=== PATIENT | male | born 1985 | race Caucasian/White ===

== ENCOUNTER 2017-05-07 01:34 | Inpatient (IN) | payer OTHER ==
[~2017-05-07] VITALS: Ht 182.9 cm; Wt 96.5 kg
[2017-05-07 01:35] VITALS: O2SAT 100
[2017-05-07] MEDS ORDERED: DIPHTH/TETANUS/ACEL PERTUSSIS (BOOSTER) 0.5 ML VIAL/PFS IM ONE (01:40)
[2017-05-07 01:54] LABS: I-STAT POTASSIUM 4.2 MMOL/L (3.5-4.9)
[2017-05-07 01:56] LABS: AUTOMATED NEUTROPHIL # 4.1 TH/MM3 (1.8-7.7); BASOPHIL % 0.3 % (0.0-2.0); EOSINOPHIL # 0.2 TH/MM3 (0-0.4); EOSINOPHIL % 1.9 % (0.0-4.0); HEMATOCRIT 41.3 % (39.0-51.0); HEMO FLAGS DIFF FINAL; LYMPH % 40.7 % (9.0-44.0); LYMPHOCYTE # 3.6 TH/MM3 (1.0-4.8); MEAN CELL VOLUME 91.4 FL (80.0-100.0); MEAN CORPUSCULAR HEMOGLOBIN 32.3 PG (27.0-34.0); MEAN CORPUSCULAR HGB CONC 35.4 % (32.0-36.0); MONO % 9.8 % (0.0-8.0); NEUT % 47.3 % (16.0-70.0); PLATELET COUNT 237 TH/MM3 (150-450); RED BLOOD COUNT 4.52 MIL/MM3 (4.50-5.90); RED CELL DISTRIBUTION WIDTH 12.1 % (11.6-17.2); WHITE BLOOD COUNT 8.7 TH/MM3 (4.0-11.0)
--- NOTE | 2017-05-07 02:04 | RADRPT ---
EXAM DATE/TIME: 05/07/2017 01:43 [facility] COMPARISON: No previous studies available for comparison. INDICATIONS : Trauma alert, fall from bed, seizure RADIATION DOSE: 56.35 CTDIvol (mGy) MEDICAL HISTORY : None SURGICAL HISTORY : None. ENCOUNTER: Initial ACUITY: 1 day PAIN SCALE: 3/10 LOCATION: cranial TECHNIQUE: Multiple contiguous axial images were obtained of the head. Using automated exposure control and adj ustment of the mA and/or kV according to patient size, radiation dose was kept as low as reasonably a chievable to obtain optimal diagnostic quality images. DICOM format image data is available electro nically for review and comparison. FINDINGS: CEREBRUM: The ventricles are normal for age. No evidence of midline shift, mass lesion, hemorrhage or acute in farction. No extra-axial fluid collections are seen. POSTERIOR FOSSA: The cerebellum and brainstem are intact. The 4th ventricle is midline. The cerebellopontine angle i s unremarkable. EXTRACRANIAL: The visualized portion of the orbits is intact. There is soft tissue swelling over left parietal bone . SKULL: The calvaria is intact. No evidence of skull fracture. CONCLUSION: Soft tissue swelling of the left parietal bone no acute fracture or hemorrhage. Awais Gil MD on May 07, 2017 at 1:49 Board Certified Radiologist. This report was verified electronically.
[2017-05-07 02:05] LABS: APTT (PATIENT) 24.5 SEC (24.3-30.1); INTERNATIONAL NORMALIZED RATIO 1.1 RATIO; PROTHROMBIN TIME - PATIENT 11.6 SEC (9.8-11.6)
--- NOTE | 2017-05-07 02:06 | RADRPT ---
EXAM DATE/TIME: 05/07/2017 01:43 [facility] COMPARISON: No previous studies available for comparison. INDICATIONS : Trauma Alert, fall out of a bunk bed. MEDICAL HISTORY : None. SURGICAL HISTORY : None. ENCOUNTER: Initial ACUITY: 1 day PAIN SCORE: 0/10 LOCATION: Bilateral chest FINDINGS: A single view of the chest demonstrates the lungs to be symmetrically aerated without evidence of mas s, infiltrate or effusion. The cardiomediastinal contours are unremarkable. Osseous structures are intact with mild scoliosis. There is overlying artifact from a backboard. CONCLUSION: Negative trauma study. Awais Gil MD on May 07, 2017 at 1:50 Board Certified Radiologist. This report was verified electronically.
--- NOTE | 2017-05-07 02:07 | RADRPT ---
EXAM DATE/TIME: 05/07/2017 01:43 [facility] COMPARISON: No previous studies available for comparison. INDICATIONS : Trauma alert, fell from bed RADIATION DOSE: 46.49 CTDIvol (mGy) MEDICAL HISTORY : None SURGICAL HISTORY : None. ENCOUNTER: Initial ACUITY: 1 day PAIN SCALE: 3/10 LOCATION: neck TECHNIQUE: Volumetric scanning of the cervical spine was performed. Multiplanar reconstructions in the sagittal, coronal and oblique axial planes were performed. Using automated exposure control and adjustment o f the mA and/or kV according to patient size, radiation dose was kept as low as reasonably achievable to obtain optimal diagnostic quality images. DICOM format image data is available electronically f or review and comparison. FINDINGS: The sagittal reconstructions demonstrate normal alignment and normal prevertebral soft tissues. The d ens is intact and there is a normal atlantoaxial relationship. The axial images demonstrate that the vertebral bodies and posterior elements are intact. The soft ti ssues are within normal limits. There is no evidence of acute fracture or malalignment. CONCLUSION: Negative trauma CT. Awais Gil MD on May 07, 2017 at 1:51 Board Certified Radiologist. This report was verified electronically.
--- NOTE | 2017-05-07 02:34 | PD ---
HPI Chief Complaint: Trauma (Alert) Time Seen by Provider: 01:40 Travel History International Travel<30 days: No Contact w/Intl Traveler<30days: No Traveled to known affect area: No History of Present Illness HPI Patient was brought in as a trauma alert. I was in the trauma bay prior to patient's arrival. He is a half-way inmate and rolled off the bed that was about 6 feet high and landed on the floor. His half-way inmate heard him shaking on the floor. He thinks patient had a seizure. He was afterwards complaining off his left leg weakness. He had a scalp laceration on the back of his head. Patient was awake but confused. He was brought in boarded and collared. He continued to have the confusion and weakness of his left lower extremity. He says it feels numb. Patient does not recall his last tetanus shot. GCS was 14. Hemodynamically stable. [facility] Past Medical History Narrative Medical List of his past medical, surgical, social and family history is reviewed from the nursing note. Allergies-Medications (Allergen,Severity, Reaction): Coded Allergies: No Known Allergies (Unverified , 05/07/17) Comments No known drug allergies. Narrative Medication Unknown Review of Systems Except as stated in HPI: all other systems reviewed are Neg Neurologic: Positive: Weakness Physical Exam Narrative GENERAL: Awake, confused, boarded and collared, moderate distress SKIN: Focused skin assessment warm/dry. Left elbow skin tear with minimal bleeding HEAD: Scalp laceration on the occipital area that is 2 cm, oozing blood EYES: Pupils equal and round. No scleral icterus. No injection or drainage. ENT: No nasal bleeding or discharge. Mucous membranes pink and moist. NECK: Trachea midline. No JVD. CARDIOVASCULAR: Regular rate and rhythm. No murmur appreciated. RESPIRATORY: No accessory muscle use. Clear to auscultation. Breath sounds equal bilaterally. GASTROINTESTINAL: Abdomen soft, non-tender, nondistended. Hepatic and splenic margins not palpable. MUSCULOSKELETAL: No obvious deformities. No clubbing. No cyanosis. No edema. NEUROLOGICAL: Awake and alert. No obvious cranial nerve deficits. Second motor strength of 4 out of 5 right lower extremity and 2 out of 5 in the left lower external. Normal speech. PSYCHIATRIC: Appropriate mood and affect; insight and judgment normal. Data Data Last Documented VS Vital Signs Date Time Temp Pulse Resp B/P (MAP) Pulse Ox O2 Delivery O2 Flow Rate FiO2 05/07/17 01:35 100 2.00 05/07/17 01:35 Nasal Cannula Orders Orders Kozv-Gva-Jqiico (Booster) Inj (Boostrix (05/07/17 01:40) I-Stat Profile (05/07/17 01:42) I-Stat Creatinine (05/07/17 01:42) Complete Blood Count With Diff (05/07/17 01:42) Prothrombin Time / Inr (Pt) (05/07/17 01:42) Act Partial Throm Time (Ptt) (05/07/17 01:42) Type And Screen (05/07/17 01:42) Chest, Single Ap (05/07/17 01:42) Ct Brain W/O Iv Contrast(Rout) (05/07/17 01:42) Ct Cerv Spine W/O Contrast (05/07/17 01:42) Iv Access Insert/Monitor (05/07/17 01:42) Ecg Monitoring (05/07/17 01:42) Oximetry (05/07/17 01:42) Oxygen Administration (05/07/17 01:42) Hip, Uni(Ap&Lat) W Ap Pelvis (05/07/17 ) Lidocaine 1% Inj (50 Ml) (Xylocaine 1% I (05/07/17 02:45) Elbow, Limited (Ap&Lat) (05/07/17 ) Admit Order (Ed Use Only) (05/07/17 03:06) Labs Laboratory Tests Test 05/07/17 01:39 White Blood Count 8.7 TH/MM3 Red Blood Count 4.52 MIL/MM3 Hemoglobin 14.6 GM/DL Bedside Hemoglobin 13.9 G/DL Hematocrit 41.3 % Bedside Hematocrit 41.0 % Mean Corpuscular Volume 91.4 FL Mean Corpuscular Hemoglobin 32.3 PG Mean Corpuscular Hemoglobin Concent 35.4 % Red Cell Distribution Width 12.1 % Platelet Count 237 TH/MM3 Mean Platelet Volume 8.1 FL Neutrophils (%) (Auto) 47.3 % Lymphocytes (%) (Auto) 40.7 % Monocytes (%) (Auto) 9.8 % Eosinophils (%) (Auto) 1.9 % Basophils (%) (Auto) 0.3 % Neutrophils # (Auto) 4.1 TH/MM3 Lymphocytes # (Auto) 3.6 TH/MM3 Monocytes # (Auto) 0.9 TH/MM3 Eosinophils # (Auto) 0.2 TH/MM3 Basophils # (Auto) 0.0 TH/MM3 CBC Comment DIFF FINAL Differential Comment Prothrombin Time 11.6 SEC Prothromb Time International Ratio 1.1 RATIO Activated Partial Thromboplast Time 24.5 SEC Bedside Sodium 141 MMOL/L Bedside Potassium 4.2 MMOL/L Bedside Chloride 102 MMOL/L Bedside Blood Urea Nitrogen 14 MG/DL Bedside Creatinine 1.4 MG/DL Bedside Glucose 98 MG/DL MDM Medical Screen Exam Complete: Yes Emergency Medical Condition: Yes Medical Record Reviewed: Yes EKG Prior to Arrival: Yes Differential Diagnosis Intracranial bleed, cervical fracture, seizure disorder Narrative Course 2:30 AM patient was rolled off the backboard. The spine was palpated and there was no step-offs or tenderness. Patient remained hemodynamically stable the entire time. Portable chest is negative. CT scan of the head and C-spine was negative. Patient has been complaining of right hip pain and an x-ray of the hip has been ordered. Meanwhile I went back and reassessed the patient and he continues to complain of weakness and numbness of his left lower extremity and strength remains 2 out of 5. I discussed the case with the trauma surgeon Dr. Olivas and he will come in to see the patient. 2:[address] Morris will admit the patient. Star Yeung the PA is going to repair the lacerations. Please refer to his procedure note. CT of the hip looked negative for any acute fracture. Awaiting for the official report. Critical Care Narrative Aggregate critical care time was 30 minutes. Time to perform other separately billable procedures was not included in the critical care time. My time did not include minutes spent treating any other patients simultaneously or on activities that did not directly contribute to the patient's treatment. The services I provided to this patient were to treat and/or prevent clinically significant deterioration that could result in: Trauma alert, head injury, monoplegia I provided critical care services requiring my management, as noted below: Chart data review, documentation time, medication orders and management, vital sign assessments/reviewing monitor data, ordering and reviewing lab tests, ordering and interpreting/reviewing x-rays and diagnostic studies, care of the patient and discussion of the patient with the admitting physicians. Trauma Alert - Level Two Trauma Alert Level Two: Full trauma team activate, Patient evaluated, Trauma surgeon called Time Surgeon Called: 02:[address] Velasco Diagnosis Diagnosis: Primary Impression: Head injury Qualified Codes: S09.90XA - Unspecified injury of head, initial encounter Additional Impressions: Scalp laceration Qualified Codes: S01.01XA - Laceration without foreign body of scalp, initial encounter Concussion Qualified Codes: S06.0X1A - Concussion with loss of consciousness of 30 minutes or less, initial encounter Seizure Monoplegia Qualified Codes: G83.14 - Monoplegia of lower limb affecting left nondominant side Injury of left elbow Qualified Codes: S59.902A - Unspecified injury of left elbow, initial encounter Contusion of right hip Qualified Codes: S70.01XA - Contusion of right hip, initial encounter Admitting Physician Requests: Molina Goel MD May 07, 2017 02:34
[2017-05-07] MEDS ORDERED: LIDOCAINE HCL 1% 50 ML VIAL INFIL ONE (02:45)
--- NOTE | 2017-05-07 02:56 | PD ---
Physical Exam Time Seen by Provider: 02:35 Data Data Last Documented VS Vital Signs Date Time Temp Pulse Resp B/P (MAP) Pulse Ox O2 Delivery O2 Flow Rate FiO2 05/07/17 01:35 100 2.00 05/07/17 01:35 Nasal Cannula Orders Orders Llom-Wdk-Ytbopk (Booster) Inj (Boostrix (05/07/17 01:40) I-Stat Profile (05/07/17 01:42) I-Stat Creatinine (05/07/17 01:42) Complete Blood Count With Diff (05/07/17 01:42) Prothrombin Time / Inr (Pt) (05/07/17 01:42) Act Partial Throm Time (Ptt) (05/07/17 01:42) Type And Screen (05/07/17 01:42) Chest, Single Ap (05/07/17 01:42) Ct Brain W/O Iv Contrast(Rout) (05/07/17 01:42) Ct Cerv Spine W/O Contrast (05/07/17 01:42) Iv Access Insert/Monitor (05/07/17 01:42) Ecg Monitoring (05/07/17 01:42) Oximetry (05/07/17 01:42) Oxygen Administration (05/07/17 01:42) Hip, Uni(Ap&Lat) W Ap Pelvis (05/07/17 ) Lidocaine 1% Inj (50 Ml) (Xylocaine 1% I (05/07/17 02:45) Elbow, Limited (Ap&Lat) (05/07/17 ) Admit Order (Ed Use Only) (05/07/17 03:06) Labs Laboratory Tests Test 05/07/17 01:39 White Blood Count 8.7 TH/MM3 Red Blood Count 4.52 MIL/MM3 Hemoglobin 14.6 GM/DL Bedside Hemoglobin 13.9 G/DL Hematocrit 41.3 % Bedside Hematocrit 41.0 % Mean Corpuscular Volume 91.4 FL Mean Corpuscular Hemoglobin 32.3 PG Mean Corpuscular Hemoglobin Concent 35.4 % Red Cell Distribution Width 12.1 % Platelet Count 237 TH/MM3 Mean Platelet Volume 8.1 FL Neutrophils (%) (Auto) 47.3 % Lymphocytes (%) (Auto) 40.7 % Monocytes (%) (Auto) 9.8 % Eosinophils (%) (Auto) 1.9 % Basophils (%) (Auto) 0.3 % Neutrophils # (Auto) 4.1 TH/MM3 Lymphocytes # (Auto) 3.6 TH/MM3 Monocytes # (Auto) 0.9 TH/MM3 Eosinophils # (Auto) 0.2 TH/MM3 Basophils # (Auto) 0.0 TH/MM3 CBC Comment DIFF FINAL Differential Comment Prothrombin Time 11.6 SEC Prothromb Time International Ratio 1.1 RATIO Activated Partial Thromboplast Time 24.5 SEC Bedside Sodium 141 MMOL/L Bedside Potassium 4.2 MMOL/L Bedside Chloride 102 MMOL/L Bedside Blood Urea Nitrogen 14 MG/DL Bedside Creatinine 1.4 MG/DL Bedside Glucose 98 MG/DL [facility] Medical Record Reviewed: Yes Supervised Visit with BRY: No Narrative Course This patient presents as a trauma alert. He has a left parietal scalp laceration which I was asked to repair. He verbally consents. He also has a laceration to the left elbow which was repaired, he verbally consented. Procedures Procedure Narrative LACERATION LOCATION: Left parietal scalp LENGTH: 2 cm NUMBER OF STITCHES/JUAN JOSÉ: 4 REPAIR: The area of the laceration was prepped with Betadine and sterilely draped. The laceration was infiltrated with 1% lidocaine. The wound was copiously irrigated and explored without evidence of foreign body, tendon injury or neurovascular injury. The wound was closed using juan josé. This was a single layer repair. A sterile dressing was applied. The patient was advised to keep the dressing clean and dry. Patient tolerated the procedure well. LACERATION LOCATION: Left elbow LENGTH: 2 cm NUMBER OF STITCHES/JUAN JOSÉ: 4 REPAIR: The area of the laceration was prepped with Betadine and sterilely draped. The laceration was infiltrated with 1% lidocaine. The wound was copiously irrigated and explored without evidence of foreign body, tendon injury or neurovascular injury. The wound was closed using juan josé. This was a single layer repair. A sterile dressing was applied. The patient was advised to keep the dressing clean and dry. Patient tolerated the procedure well. Diagnosis Primary Impression: Head injury Qualified Codes: S09.90XA - Unspecified injury of head, initial encounter Additional Impressions: Concussion Qualified Codes: S06.0X1A - Concussion with loss of consciousness of 30 minutes or less, initial encounter Seizure Scalp laceration Qualified Codes: S01.01XA - Laceration without foreign body of scalp, initial encounter Monoplegia Qualified Codes: G83.14 - Monoplegia of lower limb affecting left nondominant side Star Yeung May 07, 2017 02:56
--- NOTE | 2017-05-07 03:06 | RADRPT ---
EXAM DATE/TIME: 05/07/2017 02:16 [facility] COMPARISON: No previous studies available for comparison. INDICATIONS : Trauma Alert, fall from a bunk bed. MEDICAL HISTORY : None. SURGICAL HISTORY : None. ENCOUNTER: Initial ACUITY: 1 day PAIN SCORE: 8/10 LOCATION: Right flank hip FINDINGS: Examination of the right hip was performed with AP Pelvis. The primary and secondary trabecular francisco olga of the femoral neck is intact. The hip joint is of normal width without significant sclerosis or bony hypertrophy. The acetabulum is grossly intact. CONCLUSION: Negative trauma study. The hips are intact. Awais Gil MD on May 07, 2017 at 3:04 Board Certified Radiologist. This report was verified electronically.
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
[2017-05-07] MEDS ORDERED: LORazepam 2 MG/ML VIAL IV PUSH PRN (03:15)
[2017-05-07] MEDS ORDERED: ONDANSETRON HCL 4 MG/2 ML VIAL IV PUSH PRN (03:15)
[2017-05-07] MEDS ORDERED: CHLORHEXIDINE GLUCONATE 2 % 1 PACK (2 CLOTHS) TOP PRN (03:15)
[2017-05-07] MEDS ORDERED: MISCELLANEOUS NURSING INFORMATION XX SCH (03:15)
[2017-05-07] MEDS ORDERED: ACETAMINOPHEN 325 MG TAB PO PRN (03:15)
[2017-05-07] MEDS ORDERED: SODIUM CHLORIDE 0.9% FLUSH 10 ML FLUSH IV FLUSH PRN (03:15)
[2017-05-07] MEDS ORDERED: MAGNESIUM HYDROXIDE SUSP 30 ML CUP PO PRN (03:15)
--- NOTE | 2017-05-07 03:40 | RADRPT ---
EXAM DATE/TIME: 05/07/2017 03:20 [facility] COMPARISON: No previous studies available for comparison. INDICATIONS : Right hip pain. Fall ORAL CONTRAST: No oral contrast ingested. RADIATION DOSE: 11.33 CTDIvol (mGy) MEDICAL HISTORY : None SURGICAL HISTORY : None. ENCOUNTER: Initial ACUITY: 1 day PAIN SCALE: 4/10 LOCATION: Right hip TECHNIQUE: Volumetric scanning of the pelvis was performed. Using automated exposure control and adjustment of the mA and/or kV according to patient size, radiation dose was kept as low as reasonably achievable t o obtain optimal diagnostic quality images. DICOM format image data is available electronically for review and comparison. FINDINGS: BOWEL/MESENTERY: The visualized small and large bowel demonstrate no acute abnormality. There is no free fluid. BLADDER: There is no wall thickening or mass. RETROPERITONEUM: There is no aneurysm or lymphadenopathy. REPRODUCTIVE: Within normal limits. INGUINAL: There is no lymphadenopathy or hernia. MUSCULOSKELETAL: Within normal limits for patient age. CONCLUSION: Trauma CT no acute fracture or malalignment. Awais Gil MD on May 07, 2017 at 3:38 Board Certified Radiologist. This report was verified electronically.
--- NOTE | 2017-05-07 03:41 | RADRPT ---
EXAM DATE/TIME: 05/07/2017 03:11 [facility] COMPARISON: No previous studies available for comparison. INDICATIONS : Trauma Alert patient who fell out of a bunk bed and sustained a laceration to the l eft elbow. MEDICAL HISTORY : None. SURGICAL HISTORY : None. ENCOUNTER: Initial ACUITY: 1 day PAIN SCORE: 10 LOCATION: Left elbow FINDINGS: Two view examination of the left elbow demonstrates no soft tissue swelling, joint effusion, fracture or dislocation. Bony mineralization is normal. An intravenous catheter is present in the soft tissu es. CONCLUSION: Negative limited 2 view study. Awais Gil MD on May 07, 2017 at 3:39 Board Certified Radiologist. This report was verified electronically.
[2017-05-07] MEDS ORDERED: CHLORHEXIDINE GLUCONATE 2 % 1 PACK (2 CLOTHS) TOP SCH (04:00)
[2017-05-07 04:57] VITALS: BP 133/84; PULSE 74; RESP 16; TEMP 97.9; O2SAT 96
[2017-05-07 07:00] VITALS: PULSE 85
[2017-05-07 07:15] VITALS: BP 128/57; PULSE 79; RESP 23; TEMP 98; O2SAT 100
[2017-05-07] MEDS: DOCUSATE SODIUM 100 MG CAP PO SCH ×2 (08:35→08:41)
[2017-05-07] MEDS ORDERED: levETIRAcetam 500 MG TAB PO SCH (09:00)
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
--- NOTE | 2017-05-07 11:53 | HHI.PR ---
Neuropsych Emotional Emotional: UnabletoAssess: Emotional, Anxious/Fearful, Depressed/Sad, Hostile/ Resentful, Irritable/Angry/Frustrate, Labile, Constricted/Blunted Behavior Behavior: Unable to Asses: Behavior, Coping/Acceptance, Cooperative w/ Treatment, Motivation, Frustration Tolerance/[place], Impulsive/Agitated, Suicidal/ Homicidal Risk Cognitive Cognitive: Unable to Asses: Cognitive, Attention/Concentration, Confused/ Orientation, Insight/Awareness, Judgement/Problem-Solving, Memory Psychosocial Psychosocial: Unable to Asses: Psychosocial, Family/Other Adjustment, Realistic Expectation, Self-Esteem/Confidence Progress Notes/Response to Tx Contents of Sessions: Adjustment Premorbid psychological status Premorbid Cognitive, Emotional and Behavioral Status: Deferred. The patient is presently incarcerated. Behavioral Reactions of Patient and Family/Support System: Unable to Assess. The patients family is not present. Emotional/Behavioral Status of Patient and Family/Support System: Unable to Assess. Pertinent issues, if appropriate to this patients clinical care, are described in detail above. Maximizing acute care outcome It is recommended that the patient be monitored for emergent behavioral manipulation as the medical condition evolves. This patients neuropathological challenges may limit his rehabilitation potential going forward, and these challenges will require specialized therapeutic skills to maximize outcome. Anticipated Problems Ongoing areas of concern will include behavioral impulsivity, lack of insight and judgment, which isnot expected to improve with time and treatment. Treatment Plan This clinician will continue to follow with you throughout the course of this patients acute care treatment, provided he remains hospitalized. [facility] Level: VIII:Purposeful-appropriate Diagnosis: (1) Concussion with brief (less than one hour) loss of consciousness Progress Note Narrative Initial consult for this patient. He was undergoing EEG during trauma rounds. He may be discharged back to [facility] prior to undergoing evaluation. I will follow if he remains here. Florian Rodriguez PhD May 07, 2017 11:53 am
[2017-05-07 14:05] LABS: BLOOD, URINE NEG (NEG); GLUCOSE,URINE NEG (NEG); KETONE, URINE NEG (NEG); NITRITE,URINE NEG (NEG); PH, URINE 6.5 (5.0-8.5); URINE COLOR LIGHT-YELLOW (YELLW/STRAW)
[2017-05-07 14:06] LABS: COMMENT (UR) CULT NOT INDICATED; CULTURE IF INDICATED CULT NOT INDICATED
--- NOTE | 2017-05-07 14:52 | MG ---
cc: SUKI BROWNING MD Lab No: Date: 05/07/2017 Age: Sex: M Race: REFERRING PHYSICIAN Dr. Mejía MEDICAL HISTORY History of seizure 9 months ago, only in sleep, asthma, caffeine use, a trauma alert was called. He is a [facility] inmate, rolled out of bed about 6 feet high and landed on the floor. He was heard, shaking on the floor by an inmate. MEDICATIONS 1. Keppra. 2. Tylenol. DESCRIPTION At the beginning of the EEG the background activity was 8-9 Hz theta superimposed by excess beta activity. During the EEG recording there was drop out of the background rhythm and replaced by theta activity with appearance of sleep spindles and K complexes and the patient transitioned to stage II sleep. There is excessive movement artifact. Photic stimulation did not elicit a driving response. There were no electrographic seizures or epileptiform discharges noted during the recording. INTERPRETATION This is an awake, drowsy and asleep EEG. There is excessive movement artifact. Beta activity is a nonspecific finding that may indicate medication overuse like benzos or barbiturates. There were no ictal activity/electrographic seizures or epileptiform discharges noted during the recording. Clinical correlation is recommended. MD HARJINDER Dela Cruz/YOAV /2:12 PM /2:29 PM RAD[facility]
[2017-05-07 15:00] VITALS: PULSE 82
[2017-05-07] MEDS ORDERED: GADODIAMIDE PF 287 MG/ML 20 ML VIAL (for RAD MRI) IVCONTRAST ONE (15:30)
[2017-05-07] MEDS ORDERED: MAGN30S PO (16:09)
[2017-05-07] MEDS ORDERED: DOCU1CAP39 PO (16:09)
[2017-05-07] MEDS ORDERED: LEVE500 PO (16:12)
[2017-05-07] MEDS ORDERED: ACET325T15 PO (16:13)
[2017-05-07 16:16] LABS: FREE T4 0.97 NG/DL (0.76-1.46)
--- NOTE | 2017-05-07 16:23 | RADRPT ---
EXAM DATE/TIME: 05/07/2017 15:13 [facility] COMPARISON: No previous studies available for comparison. INDICATIONS : CVA. CONTRAST: 19 cc Omniscan (gadodiamide) IV MEDICAL HISTORY : None. SURGICAL HISTORY : Hand reconstruction. ENCOUNTER: Initial ACUITY: 3 day PAIN SCORE: 2/10 LOCATION: Head. TECHNIQUE: Multiplanar, multisequence MRI of the brain was performed both prior to and following the administrat ion of paramagnetic contrast. FINDINGS: CEREBRUM: The ventricles are normal for age. No evidence of midline shift, mass lesion, hemorrhage or acute in farction. No extraaxial fluid collections are seen. The pituitary gland and suprasellar cistern are normal in configuration. WHITE MATTER: No significant signal abnormalities are seen in the white matter. POSTERIOR FOSSA: The cerebellum and brainstem are intact. The 4th ventricle is midline. The cerebellopontine angle is unremarkable. The cerebellar tonsils are normal in position. DIFFUSION IMAGING: No focal areas of restricted diffusion are seen. No evidence of acute infarction. EXTRACRANIAL: The visualized portions of the orbits and paranasal sinuses are unremarkable. POST-CONTRAST: No abnormal areas of parenchymal or dural enhancement. No evidence of blood-brain barrier breakdown. CONCLUSION: 1. No evidence of acute intracranial pathology. No masses are identified. Derrek Pendleton MD on May 07, 2017 at 16:19 Board Certified Radiologist. This report was verified electronically.
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
[2017-05-08 17:33] LABS: ANA SCREEN NEG (NEG)
== END 2017-05-07 19:19 | DRG 101 ==
LOC: NEPE 01:34 → EDBD 03:07 → NEDA 03:07 → EEVIPCON 03:07 → N03B 04:57
PROVIDERS: ADMIT Surgery; ATTEND Surgery
PROC: 0HQ0XZZ Repair Scalp Skin, External Approach (ICD-10-PCS; principal; 2017-05-07)
PROC: 0HQEXZZ Repair Left Lower Arm Skin, External Approach (ICD-10-PCS; 2017-05-07)
DX: R56.9 Unspecified convulsions (principal); S06.0X1A Concussion with loss of consciousness of 30 minutes or less, initial encounter; S51.012A Laceration without foreign body of left elbow, initial encounter; G83.14 Monoplegia of lower limb affecting left nondominant side; S01.01XA Laceration without foreign body of scalp, initial encounter; S70.01XA Contusion of right hip, initial encounter; W06.XXXA Fall from bed, initial encounter; Z82.0 Family history of epilepsy and other diseases of the nervous system; Z87.820 Personal history of traumatic brain injury
CPT/HCPCS: 70450; 70553; 71010; 72125; 72192; 73070; 73502; 80307; 81001; 82435; 82565; 82607; 82947; 84132; 84295; 84425; 84439; 84443; 84450; 84460; 84520; 85025; 85610; 85652; 85730; 86038; 86592; 86850; 86900; 86901; 87641; 90715; 95819; A9579